=== PATIENT | female | born 1970 | race Caucasian/White ===

== ENCOUNTER 2020-02-14 12:37 | Emergency (ER) | payer MEDICAID ==
[~2020-02-14] VITALS: Ht 162.6 cm; Wt 63.0 kg
[2020-02-14 12:47] VITALS: BP 123/71
--- NOTE | 2020-02-14 12:58 | NUR ---
Patient ambulated to bed 1. RN evaluating patient at bedside.
[2020-02-14 13:27] VITALS: BP 123/71
--- NOTE | 2020-02-14 13:27 | NUR ---
PT RETURNING TO ER TO HAVE HER INCISION FROM A HERNIA REPAIR 01/10/20 LOOKED AT TO MAKE SURE IT IS HEALING WELL. PT REPORTS SEEING WHAT LOOKED LIKE POSSIBLE DRAINAGE COMING FROM THE WOUND YESTERDAY. PT DENIES PAIN/FEVER/N/V. WOUND IS CLEAN DRY AND INTACT.
--- NOTE | 2020-02-14 13:28 | NUR ---
Patient discharged with v/s stable. Written and verbal after care instructions given and explained. Patient verbalized understanding. Ambulatory with steady gait. All questions addressed prior to discharge. Advised to follow up with PMD.
== END 2020-02-14 13:28 | disposition home or self-care (01) ==
LOC: MED 12:37
DX: T81.30XA Disruption of wound, unspecified, initial encounter (principal); R73.03 Prediabetes; D25.9 Leiomyoma of uterus, unspecified
CPT/HCPCS: 99281

== ENCOUNTER 2020-09-17 22:57 | Emergency (ER) | payer MEDICAID ==
[~2020-09-17] VITALS: Ht 160 cm; Wt 62.4 kg
[2020-09-17 23:08] VITALS: BP 140/96
--- NOTE | 2020-09-17 23:08 | NUR ---
TO BED AMBULATORY
--- NOTE | 2020-09-17 23:33 | NUR ---
50 YO/F BIB self w C/O L suprapubic discomfort, swelling and a lump for several days. Patient reports she is able to push the lump back in. Patient reports experiencing discomfort after she has been standing/ working. Patient reports history of surgical hernia repair in December. Patient denies bowel or urine problems. Patient denies current pain. Patient sitting in bed, locked in lowest position, x1 side rail up. NAD noted.
--- NOTE | 2020-09-17 23:33 | NUR ---
ERMD AT BEDSIDE FOR MEDICAL EVALUATION.
[2020-09-17 23:40] LABS: APPEARANCE,URINE CLOUDY (CLEAR); BILIRUBIN,URINE NEGATIVE (NEGATIVE); BLOOD, URINE 2+ (NEGATIVE); COLOR,URINE YELLOW (YELLOW); LEUKOCYTE ESTERASE ,URINE TRACE (NEGATIVE); NITRITE, URINE NEGATIVE (NEGATIVE); UGLUCOSE NEGATIVE (NEGATIVE)
[2020-09-17 23:55] VITALS: BP 140/96
--- NOTE | 2020-09-17 23:55 | NUR ---
Note claudeone in EDM - 09/18/20 at 0401 by STELLA 50 YO/F BIB self w C/O L suprapubic discomfort, swelling and a lump for several days. Patient reports she is able to push the lump back in. Patient reports experiencing discomfort after she has been standing/ working. Patient reports history of surgical hernia repair in December. Patient denies bowel or urine problems. Patient denies current pain. Patient sitting in bed, locked in lowest position, x1 side rail up. NAD noted.
[2020-09-18 00:31] LABS: RBC,URINE 0-5 /HPF (0-5); URINE AMORPHOUS URATE 4+ /HPF (None Seen)
== END 2020-09-17 23:55 | disposition home or self-care (01) ==
LOC: MED 22:57
DX: K40.30 Unilateral inguinal hernia, with obstruction, without gangrene, not specified as recurrent (principal)
CPT/HCPCS: 81001; 81025; 87086; 99283

== ENCOUNTER 2023-12-01 09:03 | Emergency (ER) | payer MEDICAID ==
[~2023-12-01] VITALS: Ht 170.2 cm; Wt 67.3 kg
[2023-12-01 09:25] VITALS: BP 117/69; PULSE 53; RESP 16; TEMP 97.7; O2SAT 98
[2023-12-01] MEDS ORDERED: IBUP-2218 PO (11:08)
[2023-12-01] MEDS ORDERED: ACET500T99 PO (11:08)
[2023-12-01] MEDS ORDERED: KETOROLAC 30 MG/ML VIAL ONE (11:13)
[2023-12-01] MEDS: KETOROLAC 30 MG/ML VIAL IM ONE (11:18)
== END 2023-12-01 11:35 | disposition home or self-care (01) ==
LOC: MED 09:03
DX: S92.352A Displaced fracture of fifth metatarsal bone, left foot, initial encounter for closed fracture (principal); Z79.899 Other long term (current) drug therapy; W10.1XXA Fall (on)(from) sidewalk curb, initial encounter; Y92.89 Other specified places as the place of occurrence of the external cause; Y93.89 Activity, other specified; Y99.8 Other external cause status
CPT/HCPCS: 73630; 96372; 99283; J1885